=== PATIENT | female | born 1940 | race Caucasian/White ===

== ENCOUNTER → 2016-11-04 | Outpatient (CLI) | payer MEDICARE, BC ==
[~2016-11-04] MED LIST: ACETAMINOPHEN PO; B COMPLEX/FOLIC1 TAB PO; BISOPROLOL-HCTZ1 TAB; CALTRATE 600+D PO; CENTRUM SILVER PO; HCTZ; NASONEX17 GM; ZOCOR
--- NOTE | ~2016-11-04 | US128 ---
[id number] [facility]. [place], [place] [address] [id number] O MR#: [id number] Acc #: [id number] NAME: JAKUB SILVA : 1940 SEX: F STUDY DATE/TIME: 11/04/2016 13:17 UNIT: [facility] ROOM: STUDY DESCRIPTION: Thyroid Attending Physician: Denny Vasquez M.D. Referring Physician: Denny Vasquez M.D. Ordering Physician: Denny Vasquez M.D. Primary Care Physician: Omer Grimes M.D. MEDICAL IMAGING REPORT This report is preliminary unless electronic signature is present EXAM Ultrasound thyroid gland. INDICATION Thyroid nodules. Patient has undergone left thyroidectomy in July of 2016. She was also noted to have a nodule at the right lobe of the thyroid gland in July 2016. TECHNIQUE Heath-scale and color Doppler sonographic images were obtained through the right lobe of the thyroid gland. FINDINGS Right lobe measures 4.0 x 2.4 x 1.7 cm. 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 Overall thyroid parenchyma is somewhat heterogeneous. There is a hypoechoic nodules seen within the right lobe of the thyroid gland measuring 6 x 9 x 5 mm. It does not appear significantly changed when compared to the exam from July 2016. Left lobe again is surgically absent. IMPRESSION 1. This patient has a hypoechoic nodule seen within the right lobe of the thyroid gland, which is unchanged in size when compared to the prior exam from July of 2016. Continued sonographic surveillance is suggested with next followup recommended in 6 months. 2. Patient is status post left thyroidectomy. Dictated by... Benita Glover M.D. THIS IS AN ELECTRONICALLY VERIFIED REPORT Benita Glover M.D. at 11/05/2016 3:37 PM AFF/tmw TD: 11/05/2016 10:01 JOB #: [id number] MEDICAL IMAGING REPORT Page 1 of 1 COPY
== END | disposition home or self-care (01) ==
LOC: CGUS 12:52
DX: D72.820 Lymphocytosis (symptomatic) (principal); E07.9 Disorder of thyroid, unspecified; E83.52 Hypercalcemia; E04.1 Nontoxic single thyroid nodule; Z98.890 Other specified postprocedural states
CPT/HCPCS: 76536